=== PATIENT | male | born 1945 | race Caucasian/White ===

== ENCOUNTER 2020-12-08 15:02 | Inpatient (IN) | payer MEDICARE ==
[2020-12-08] MEDS ORDERED: Aspirin 325 MG TAB ONE (16:41)
[2020-12-08] MEDS ORDERED: Acetaminophen 325 MG TAB PO PRN ×2 (17:45→20:42)
[2020-12-08] MEDS ORDERED: Ondansetron ODT 4 MG TAB SL PRN (17:45)
[2020-12-08] MEDS ORDERED: Ondansetron PF 4 MG/2 ML Vial IVP PRN ×2 (17:45→20:42)
[2020-12-08 18:29] VITALS: BMI 27.0
[2020-12-08] MEDS ORDERED: Acetaminophen 650 MG Suppository PR PRN (20:42)
[2020-12-08] MEDS ORDERED: Ondansetron ODT 4 MG TAB PO PRN (20:42)
[2020-12-08] MEDS: Rosuvastatin 20 MG TAB PO SCH (21:11)
[2020-12-08] MEDS: Apixaban 5 MG TAB PO SCH (21:11)
[2020-12-08] MEDS: Famotidine/PF 20 mg/2ml Vial SLOW IVP SCH (21:13)
[2020-12-08] MEDS ORDERED: Lorazepam 1 MG TAB PO SCH (22:45)
[2020-12-09 04:30] LABS: SARS-CoV-2 PCR by NAA Not Detected (NotDetected)
[2020-12-09 05:38] LABS: #Eosinphils 0.2 thou/uL (0.0-0.7); #Lymphocytes 0.7 thou/uL (1.20-3.40); #Monocytes 0.5 thou/uL (0.11-0.59); #Neutrophils 4.4 thou/uL (1.40-6.50); %Basophils 0.5 % (0.0-1.0); %Eosinophils 3.4 % (0.0-10.0); %Lymphocytes 12.7 % (21.0-51.0); %Monocytes 9.1 % (0.0-10.0); %Neutrophils 74.3 % (42.0-75.0); Hemoglobin 11.8 g/dL (14.0-18.0); Mean Corpuscular HGB CONC 31.3 g/dL (32.0-36.0); Mean Corpuscular Hemoglobin 28.7 pg (27.0-31.0); Mean Corpuscular Volume 91.6 fL (78.0-98.0); Mean Platelet Volume 6.4 fL (7.4-10.4); Platelet Count 228 thou/uL (130-400); RBC Distribution Width 14.8 % (11.5-14.5); Red Blood Cell (RBC) Count 4.13 mill/uL (4.70-6.10); White Blood Cell (WBC) Count 5.9 thou/uL (4.8-10.8)
[2020-12-09 05:57] LABS: Anion Gap 11 mmol/L (10-20); BUN (Urea Nitrogen) 23 mg/dL (8.4-25.7); Calc. Creatinine Clearance 74 mL/min (70-130); Calcium 8.7 mg/dL (7.8-10.44); Carbon Dioxide 25 mmol/L (23-31); Cardiac Risk 3.2 (Less than 4.5); Chloride 105 mmol/L (98-107); Cholesterol 104 mg/dl (< 200 Desired); Glucose 106 mg/dL (83-110); HDL Cholesterol 33 mg/dL (>60 Neg Risk); LDL Cholesterol, Calculated 58 mg/dL; Potassium 4.2 mmol/L (3.5-5.1); Sodium 137 mmol/L (136-145); Triglycerides 65 mg/dL (Less than 150)
[2020-12-09] MEDS: Tamsulosin HCl 0.4 MG CAP PO SCH (09:20)
[2020-12-09] MEDS: Gabapentin 300 MG CAP PO SCH ×2 (09:21→20:19)
[2020-12-09] MEDS: Escitalopram Oxalate 10 mg Tablet PO SCH (09:23)
[2020-12-09] MEDS: Famotidine/PF 20 mg/2ml Vial SLOW IVP SCH ×2 (09:23→20:20)
[2020-12-09] MEDS: Apixaban 5 MG TAB PO SCH ×2 (09:23→20:19)
[2020-12-09] MEDS: Aspirin 81 mg Enteric Coated Tablet PO SCH (09:23)
[2020-12-09 19:10] LABS: Hemoglobin A1c 5.7 % (4.0-6.0)
[2020-12-09] MEDS: Rosuvastatin 20 MG TAB PO SCH (20:19)
[2020-12-10 06:51] LABS: #Eosinphils 0.2 thou/uL (0.0-0.7); #Lymphocytes 0.7 thou/uL (1.20-3.40); #Monocytes 0.5 thou/uL (0.11-0.59); #Neutrophils 4.7 thou/uL (1.40-6.50); %Basophils 0.8 % (0.0-1.0); %Eosinophils 3.2 % (0.0-10.0); %Lymphocytes 11.9 % (21.0-51.0); %Monocytes 8.4 % (0.0-10.0); %Neutrophils 75.8 % (42.0-75.0); Mean Corpuscular HGB CONC 32.4 g/dL (32.0-36.0); Mean Corpuscular Hemoglobin 29.2 pg (27.0-31.0); Mean Corpuscular Volume 90.1 fL (78.0-98.0); Mean Platelet Volume 6.2 fL (7.4-10.4); Platelet Count 224 thou/uL (130-400); RBC Distribution Width 14.7 % (11.5-14.5); Red Blood Cell (RBC) Count 4.12 mill/uL (4.70-6.10); White Blood Cell (WBC) Count 6.2 thou/uL (4.8-10.8)
[2020-12-10 07:12] LABS: Anion Gap 11 mmol/L (10-20); BUN (Urea Nitrogen) 29 mg/dL (8.4-25.7); Calc. Creatinine Clearance 69 mL/min (70-130); Calcium 8.8 mg/dL (7.8-10.44); Carbon Dioxide 26 mmol/L (23-31); Chloride 104 mmol/L (98-107); Glucose 106 mg/dL (83-110); Magnesium 1.8 mg/dL (1.6-2.6); Potassium 4.1 mmol/L (3.5-5.1); Sodium 137 mmol/L (136-145)
[2020-12-10 07:17] LABS: Troponin I Less than 0.010 ng/mL (< 0.028)
[2020-12-10] MEDS: Apixaban 5 MG TAB PO SCH ×2 (08:42→20:09)
[2020-12-10] MEDS: Gabapentin 300 MG CAP PO SCH ×2 (08:42→20:09)
[2020-12-10] MEDS: Famotidine/PF 20 mg/2ml Vial SLOW IVP SCH (08:42)
[2020-12-10] MEDS: Escitalopram Oxalate 10 mg Tablet PO SCH (08:44)
[2020-12-10] MEDS: Tamsulosin HCl 0.4 MG CAP PO SCH (08:52)
[2020-12-10] MEDS: Aspirin 81 mg Enteric Coated Tablet PO SCH (10:12)
[2020-12-10] MEDS: Rosuvastatin 20 MG TAB PO SCH (20:09)
[2020-12-11] MEDS: Famotidine/PF 20 mg/2ml Vial SLOW IVP SCH ×2 (00:19→10:20)
[2020-12-11] MEDS: Escitalopram Oxalate 10 mg Tablet PO SCH (10:19)
[2020-12-11] MEDS: Tamsulosin HCl 0.4 MG CAP PO SCH (10:19)
[2020-12-11] MEDS: Gabapentin 300 MG CAP PO SCH (10:19)
[2020-12-11] MEDS: Apixaban 5 MG TAB PO SCH (10:19)
[2020-12-11 12:05] VITALS: BP 127/58; TEMP 97.5
== END 2020-12-11 14:06 | disposition home or self-care (01) | DRG 68 ==
LOC: ERS 15:02 → 2SE 15:58 → INTOOBSV 15:58 → OBSVTOIN 12-10 16:43
PROVIDERS: ADMIT Internal Medicine; ATTEND Internal Medicine
DX: I65.21 Occlusion and stenosis of right carotid artery (principal); C34.90 Malignant neoplasm of unspecified part of unspecified bronchus or lung; I82.890 Acute embolism and thrombosis of other specified veins; I47.2 Ventricular tachycardia; C79.31 Secondary malignant neoplasm of brain; C79.51 Secondary malignant neoplasm of bone; Z20.822 Contact with and (suspected) exposure to COVID-19; G62.0 Drug-induced polyneuropathy; T45.1X5A Adverse effect of antineoplastic and immunosuppressive drugs, initial encounter; E78.5 Hyperlipidemia, unspecified; I67.1 Cerebral aneurysm, nonruptured; Z87.891 Personal history of nicotine dependence; Z79.899 Other long term (current) drug therapy; Z79.01 Long term (current) use of anticoagulants
CPT/HCPCS: 36415; 70551; 71046; 80048; 80061; 83036; 83735; 84484; 85025; 87635; 93005; 93010; 93306; 95712; 95819; 95957; 99285; G0378; U0003; U0005